=== PATIENT | female | born 1960 | race Caucasian/White ===

== ENCOUNTER 2017-05-23 12:43 | Emergency (ER) | payer OTHER ==
[~2017-05-23] VITALS: Ht 165.1 cm; Wt 59.0 kg
[~2017-05-23 12:43] MED LIST: ASPIR 8181 MG PO; COLESTID1 G PO; FLECAINIDE ACET50 MG PO; LYRICA75 MG PO; TEGRETOL200 MG PO; TOPROL XL25 MG PO; TYLENOL WITH C1 EACH PO
[2017-05-23] MEDS ORDERED: SODIUM CHLORIDE 0.9% 1000ML 1,000 ML IV ONE (14:45)
[2017-05-23 19:57] VITALS: BP 98/52
== END 2017-05-23 16:50 | disposition home or self-care (01) ==
LOC: FSED 12:43
DX: B34.9 Viral infection, unspecified (principal); R51 Headache; I48.91 Unspecified atrial fibrillation; H26.9 Unspecified cataract; Z86.73 Personal history of transient ischemic attack (TIA), and cerebral infarction without residual deficits; Z79.82 Long term (current) use of aspirin; Z88.2 Allergy status to sulfonamides; Z88.8 Allergy status to other drugs, medicaments and biological substances
CPT/HCPCS: 70450; 71046; 80053; 82553; 84484; 85025; 87400; 93005; 99284; J7030

== ENCOUNTER 2018-02-08 10:32 | Emergency (ER) | payer OTHER ==
[~2018-02-08] VITALS: Ht 165.1 cm; Wt 59.0 kg
--- OUTSIDE RECORDS SUMMARY | 2018-02-08 10:34 | XMS REPORT | Clinical Summary ---
Author Author [facility] Address Unknown Phone Unavailable Care Team Providers Care Box Order Person Name Role Phone Andre Cai PCP Unavailable Allergies Comments Active Allergy Reactions Severity Noted Date Sulfa (Sulfonamide Nausea Only High 10/22/2015 Antibiotics) Medications End Date Status Medication Sig Dispensed Refills Start Date Active carBAMazepine (TEGRETOL Take 100 mg 0 XR) 100 MG 12 hr tablet by mouth every 12 (twelve) hours. Active acetaminophen-codeine Take by mouth 0 (TYLENOL #3) 300-30 mg as needed for per tablet Pain (Take 1 to 2 tablets by mouth every 4 to 6 hours as needed.). Active metoprolol (TOPROL-XL) 25 Take by mouth 0 MG 24 hr tablet as directed Take 1 tablet by mouth in the morning. Take 1/2 tablet by mouth at night. Dose and frequency confirmed and verified with the patient. . Active flecainide (TAMBOCOR) 50 Take 50 mg by 0 MG tablet mouth 2 (two) times daily. Active aspirin 81 MG EC tablet Take 81 mg by 0 mouth nightly. Active Problems Not on file Social History Date Tobacco Use Types Packs/Day Years Used Never Assessed Sex Assigned at Date Recorded Not on file Industry Job Start Date Occupation Not on file Not on file Not on file Travel End Travel History Travel Start No recent travel history available. Last Filed Vital Signs Not on file Plan of Treatment Care Team Description Date Type Specialty [facility] [address] [place] [address] 03/14/2018 Hospital Encounter Basil Merchant MD 1976 [facility] 2[address] Fl [place] [address] [address] [place] [address] IMPLANT EXCHANGE,IOL 03/14/2018 Surgery Results Not on fileafter 02/07/2017 Insurance Payer Benefit Subscriber ID Type Phone Address Plan / Group [employer] - [place]GD UNITED PPO xxxxxxxxxxxx PPO CARE OPTIONS [employer] - [place] CARE [employer]ET[employer] OPEN xxxxxxxxxx HMO/POS ACCESS HMO NAP
--- OUTSIDE RECORDS SUMMARY | 2018-02-08 10:34 | XMS REPORT | Summary of Care ---
Author Author MERLYN Shaw, SARAH Recinos Unknown Address [facility] Phone Unavailable Care Team Providers Care Director Of Culture Name Role Phone MERLYN Shaw, SARAH Mcgovern Unavailable BLAS NAQVI M.D. Unavailable Unavailable MERLYN CRUM NMSARAH Unavailable Unavailable CASA CHNEEY NM, APRIL Mcgovern Unavailable Unavailable Unavailable Functional Status Name Dates Details Functional status health issues are not documented Status: Name Dates Details Cognitive status health issues are not documented Status: Problems Name Dates Details Headache (784.0, R51) Status: Active Decreased libido (799.81, R68.82) Status: Active Influenza (487.1, J11.1) Status: Active Influenza vaccine needed (V04.81, Z23) Status: Active Encounter for routine gynecological examination with Papanicolaou smear of cervix (V72.31, Z01.419) Status: Active Myalgia and myositis (729.1) Status: Active Fatigue (780.79, R53.83) Status: Active Mitral valve prolapse syndrome (424.0, I34.1) Status: Active Need for influenza vaccination (V04.81, Z23) Status: Active Intermittent cerebral ischemia (435.9, G45.9) Status: Active Osteoarthritis of knee (715.36, M17.10) Status: Active Need for DTP vaccine (V06.1, Z23) Status: Active 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, 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: Active 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, 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) Status: Active Inflamed seborrheic keratosis (702.11, L82.0) Status: Active Meralgia paresthetica (355.1, G57.10) Status: Active Urticaria, acute (708.8, L50.8) Status: Active Malaise (780.79, R53.81) Status: Active Ear pain, left (388.70, H92.02) Status: Active Cough (786.2, R05) Status: Active Orthostatic hypotension (458.0, I95.1) Status: Active Iatrogenic hypotension (458.29, I95.89) Status: Active Hypotension (458.9, I95.9) Status: Active Dysfunction of both Eustachian tubes (381.81, H69.83) Status: Active Diarrhea (787.91, R19.7) Status: Active Drug-induced diarrhea (787.91, K52.1) Status: Active Acute back pain less than 4 weeks duration (724.5, M54.9) Status: Active Muscle strain (848.9, T14.8XXA) Status: Active Coracoid impingement of right shoulder (726.2, M75.41) Status: Active Postmenopausal (V49.81, Z78.0) Status: Active Encounter for screening for osteoporosis (V82.81, Z13.820) Status: Active Jaw pain (784.92, R68.84) Status: Active Dermatitis (692.9, L30.9) Status: Active Nausea and vomiting (787.01, R11.2) Status: Active Laryngitis (464.00, J04.0) Status: Active Leg pain, anterior, left (729.5, M79.605) Status: Active Allergic rhinitis, seasonal (477.9, J30.2) Status: Active Urine frequency (788.41, R35.0) Status: Active Lupus (695.4, L93.0) Status: Active Muscle weakness (728.87, M62.81) Status: Active Anemia (285.9, D64.9) Status: Active Other fatigue (780.79, R53.83) Status: Active ADONAY positive (795.79, R76.8) Status: Active Iritis (364.3, H20.9) Status: Active Polyarthralgia (719.49, M25.50) Status: Active Keratoderma (757.39, Q82.8) Status: Active Foot pain (729.5, M79.673) Status: Active Limb pain (729.5, M79.609) Status: Active Osteoarthritis (715.90, M19.90) Status: Active Nausea (787.02, R11.0) Status: Active Visit for screening mammogram (V76.12, Z12.31) Status: Active Postmenopausal atrophic vaginitis (627.3, N95.2) Status: Active Acute bronchitis (466.0, J20.9) Status: Active Trigeminal neuralgia (350.1, G50.0) Status: Active Vaginal dryness (625.8, N89.8) Status: Active Inflammation Status: Active Acute vulvitis (616.10, N76.2) Status: Active Urinary symptom or sign (788.99, R39.9) Status: Active Cervical inflammation (616.0, N72) Status: Active Acute vaginitis (616.10, N76.0) Status: Active Laryngopharyngeal reflux (478.79, K21.9) Status: Active Acute pharyngitis due to other specified organisms (462, J02.8) Status: Active Allergic rhinitis (477.9, J30.9) Status: Active Medications Name Dates Details Toprol XL 25 MG Oral Tablet Extended Release 24 Hour take 1 AM, 1/2 PM * Start : 08-Aug-2007 Active Colestipol HCl - 1 GM Oral Tablet TAKE 1 TABLET DAILY. * Quantity: 30 Refills: 0 SARAH ZULETA M.D. Active Aspirin 81 MG TABS TAKE 1 TABLET DAILY. * Refills: 0 Active Ambien 5 MG Oral Tablet TAKE 1 TABLET AT BEDTIME NEEDED. * Refills: 0 Active Ondansetron 4 MG Oral Tablet Disintegrating 1 po tid prn * Quantity: 10 Refills: 0 BLAS NAQVI M.D. * Start : 28-Dec-2015 Active Flecainide Acetate 50 MG Oral Tablet TAKE 1 TABLET TWICE DAILY. * Refills: 0 Active Nitrofurantoin Macrocrystal 100 MG Oral Capsule TAKE ONE (1) CAPSULE(S) BY MOUTH DAILY NEEDED FOR UTI PROPHYLAXIS. * Quantity: 30 Refills: 0 SARAH ZULETA M.D. * Start : 21-Sep-2016 Active Pantoprazole Sodium 40 MG Oral Tablet Delayed Release 1 po q day * Quantity: 30 Refills: 2 SARAH ZULETA M.D. * Start : 16-Apr-2017 Active Allergies and Adverse Reactions Name Dates Details Sudafed TABS (Allergy) Status: Active Sulfa Drugs (Allergy) Status: Active Past Medical History Name Dates Details Influenza vaccine needed (V04.81, Z23) Status: Active History of Acute upper respiratory infection (465.9, J06.9) Status: Resolved History of Atrial fibrillation (427.31, I48.91) Status: Resolved History of Migraine without status migrainosus, not intractable (346.90, G43.909) Status: Resolved History of screening mammography (V15.89, Z92.89) Status: Resolved Procedures Procedure Dates Details History of Cholecystotomy Completed History of Tonsillectomy Completed Immunization Name Dates Details Influenza on: 18-Jan-2012 Fluzone INJ Lot #: [id number] on: 23-Mar-2013 Fluzone INJ Lot #: [id number] on: 31-Jan-2014 DTaP Lot #: [id number] on: 16-Feb-2014 Fluzone Preservative Free 0.5 ML AMY Lot #: [id number] on: 27-Dec-2015 Family History Name Dates Details Family history of Arthritis (V17.7) Status: Active Family history of Reported Family History Of Kidney Disease Status: Active Name Dates Details Family history of Reported Family History Of Heart Disease Status: Active Social History Name Dates Details - Status: Name Dates Details Never smoker Vital Signs Date Test Result Details [id number] BP Systolic 90 mm[Hg] Status: Comments: Location: LUE; Position: Sitting BP Diastolic 58 mm[Hg] Status: Comments: Location: LUE; Position: Sitting Height 65 in Status: Weight 130.25 lb Status: Body Mass Index Calculated 21.67 kg/m2 Status: Body Surface Area Calculated 1.65 m2 Status: Temperature 97.4 f Status: Comments: Method: Temporal Heart Rate 56 /min Status: Comments: Location: R Radial; Quality: Normal Respiration Rate 18 /min Status: Comments: Quality: Normal :44 BP Systolic 92 mm[Hg] Status: Comments: Location: LUE; Position: Sitting BP Diastolic 59 mm[Hg] Status: Comments: Location: LUE; Position: Sitting Height 65 in Status: Weight 128.1875 lb Status: Body Mass Index Calculated 21.33 kg/m2 Status: Body Surface Area Calculated 1.64 m2 Status: Temperature 97.1 f Status: Comments: Method: Temporal Heart Rate 61 /min Status: Respiration Rate 16 /min Status: Results Date Description Value Details [id number] [O] Streptococcus Test Rapid (In Office) Group A Strep Screen Negative (Normal) Plan of Care Name Dates Details Planned Observations Planned Goals not documented Interventions Provided Plan* Plan today symptomatic therapy for an allergic rhinitis. All questions were answered she will be seen as needed. Instructions Name Dates Details Instructions not documented Encounters Appointment; BLAS NAQVI M.D. Encounter Diagnosis: Problem not documented On: 19-Jun-2015 16:00 Appointment; DALTON CORONA NP Encounter Diagnosis: Problem not documented On: 24-Jul-2015 15:00 Appointment; MARCELA HICKS M.D. Encounter Diagnosis: Problem not documented On: 27-Sep-2015 10:30 Appointment; PORTER BRADSHAW M.D. Encounter Diagnosis: Problem not documented On: 15-Oct-2015 14:30 Appointment; MARSHALL CHIANG D.O. Encounter Diagnosis: Problem not documented On: 18-Oct-2015 13:45 Appointment; SARAH ZULETA M.D. Encounter Diagnosis: Problem not documented On: 27-Dec-2015 15:45 Appointment; SARAH ZULETA M.D. Encounter Diagnosis: Problem not documented On: 27-Dec-2015 16:00 Appointment; BLAS NAQVI M.D. Encounter Diagnosis: Problem not documented On: 28-Dec-2015 9:00 Appointment; SRIRAM RODRIGUEZ NP Encounter Diagnosis: Problem not documented On: 30-Jan-2016 18:30 Appointment; WILFRIDO SÁNCHEZ P.A. Encounter Diagnosis: Problem not documented On: 23-Mar-2016 10:30 Appointment; SARAH ZULETA M.D. Encounter Diagnosis: Problem not documented On: 20-Apr-2016 11:15 Appointment; APRIL CORMIER, PEly Encounter Diagnosis: Problem not documented On: 20-Jul-2016 12:30 Appointment; MARSHALL CHIANG D.O. Encounter Diagnosis: Problem not documented On: 21-Jul-2016 15:30 Appointment; ERROL CODY M.D. Encounter Diagnosis: Problem not documented On: 27-Jul-2016 14:00 Appointment; SARAH ZULETA M.D. Encounter Diagnosis: Problem not documented On: 11-Sep-2016 12:00 Appointment; JIGAR MURRIETA NP Encounter Diagnosis: Problem not documented On: 23-Sep-2016 13:00 Appointment; SARAH ZULETA M.D. Encounter Diagnosis: Problem not documented On: 02-Oct-2016 11:45 Appointment; PORTER BRADSHAW M.D. Encounter Diagnosis: Problem not documented On: 21-Oct-2016 11:20 Appointment; JIGAR MURRIETA NP Encounter Diagnosis: Problem not documented On: 09-Dec-2016 13:30 Appointment; MARCELA HICKS M.D. Encounter Diagnosis: Problem not documented On: 10-Feb-2017 15:30 Appointment; SARAH ZULETA M.D. Encounter Diagnosis: Problem not documented On: 16-Apr-2017 10:15 Appointment; SARAH ZULETA M.D. Encounter Diagnosis: Problem not documented On: 24-Apr-2017 9:00 Appointment; SARAH ZULETA M.D. Encounter Diagnosis: Problem not documented On: 21-May-2017 11:15
[2018-02-08] MEDS ORDERED: KETOROLAC TROMETHAMINE 60 MG/2 ML VIAL IM STA (11:03)
[2018-02-08] MEDS ORDERED: HYDROCODONE/APAP 7.5MG-325MG 1 EA TAB PO STA (11:45)
--- NOTE | 2018-02-08 11:57 | Diagnostic Imaging Report ---
Radiographs of the lumbar spine 3 views - HISTORY: Pain COMPARISON: None available. FINDINGS: Bones: No acute displaced fracture. Osseous alignment is within normal limits. Joints: Mild scattered degenerative change. No osseous erosion. Soft tissues: The soft tissues appear unremarkable. IMPRESSION: Mild scattered degenerative change. No osseous erosion. Signed by: Dr. Chandler Whipple M.D. on 02/08/2018 11:54 AM
[2018-02-08 12:16] VITALS: BP 101/57
== END 2018-02-08 12:31 | disposition home or self-care (01) ==
LOC: FSED 10:32
DX: M54.5 Low back pain (principal); M54.16 Radiculopathy, lumbar region
CPT/HCPCS: 72100; 99283; J1885

== ENCOUNTER 2023-01-15 09:12 | Inpatient (IN) | payer BC, OTHER ==
[~2023-01-15] VITALS: Ht 165.1 cm; Wt 59.0 kg
[2023-01-15] MEDS ORDERED: LACTATED RINGER'S 1,000 ML IV ONE ×2 (09:45→12:15)
[2023-01-15 10:13] LABS: BASOPHILS % 0.4 % (0.0-1.0); EOSINOPHILS % 0.4 % (0.0-6.0); HEMATOCRIT 37.7 % (34.2-44.1); HEMOGLOBIN 12.9 g/dL (12.0-16.0); LYMPHOCYTES # (AUTO) 0.5 (1.0-3.2); LYMPHOCYTES % 7.2 % (18.0-39.1); MEAN CORPUSCULAR HEMOGLOBIN 30.2 pg (28-32); MEAN CORPUSCULAR HGB CONC 34.2 g/dL (31-35); MEAN CORPUSCULAR VOLUME 88.3 fL (81-99); MONOCYTES % 0.3 % (4.4-11.3); NEUTROPHILS # (AUTO) 6.4 (2.1-6.9); NEUTROPHILS % 91.3 % (38.7-80.0); PLATELET COUNT 177 x10e3/uL (140-360); RED BLOOD COUNT 4.27 x10e6/uL (3.6-5.1); RED CELL DISTRIBUTION WIDTH 14.5 % (11.7-14.4); WHITE BLOOD COUNT 6.99 x10e3/uL (4.8-10.8)
[2023-01-15] MEDS ORDERED: ACETAMINOPHEN 1000 MG/100 ML IV STA (10:24)
[2023-01-15] MEDS ORDERED: ONDANSETRON HCL INJ 2MG/ML 2ML 2 MG/ML VIAL IV STA (10:24)
[2023-01-15 10:37] LABS: ALANINE AMINOTRANSFERASE 228 IU/L (0-55); ALBUMIN 3.1 g/dL (3.5-5.0); ALBUMIN/GLOBULIN RATIO 0.8 (0.8-2.0); ALKALINE PHOSPHATASE 167 IU/L (40-150); ANION GAP 14.4 mmol/L (8-16); BLOOD UREA NITROGEN 12 mg/dL (7-26); BUN/CREATININE RATIO 14 (6-25); CALCIUM 9.6 mg/dL (8.4-10.2); CARBON DIOXIDE 22 mmol/L (22-29); CHLORIDE 105 mmol/L (98-107); CREATINE KINASE 15 IU/L (29-168); CREATININE, SERUM 0.85 mg/dL (0.57-1.11); GLUCOSE 105 mg/dL (74-118); POTASSIUM 4.4 mmol/L (3.5-5.1); SODIUM 137 mmol/L (136-145)
[2023-01-15] MEDS ORDERED: IBUPROFEN 600 MG TAB PO STA (12:10)
[2023-01-15 15:06] LABS: CLARITY,URINE CLEAR (CLEAR); COLOR,URINE YELLOW (YELLOW)
[2023-01-15 15:07] LABS: KETONES,URINE NEGATIVE (NEGATIVE); LEUKOCYTE ESTERASE ,URINE SMALL (NEGATIVE); NITRITE,URINE NEGATIVE (NEGATIVE); PROTEIN,URINE DIPSTICK TRACE (NEGATIVE); URINE UROBILINOGEN 0.2 mg/dL (0.2 - 1)
[2023-01-15 15:17] LABS: BACTERIA,URINE RARE /HPF; EPITHELIAL CELLS,URINE FEW /LPF; RENAL EPITHELIAL CELLS,URINE FEW; WBC,URINE (MAN) 0-5 /HPF (0-5)
[2023-01-15] MEDS: LACTATED RINGER'S 1,000 ML INJ SCH ×2 (15:36→18:34)
[2023-01-15] MEDS ORDERED: ONDANSETRON HCL 4 MG ORAL DISINTEGRATING TAB PO PRN (16:30)
[2023-01-15] MEDS ORDERED: ONDANSETRON HCL INJ 2MG/ML 2ML 2 MG/ML VIAL IV PRN (16:30)
[2023-01-15 17:00] VITALS: BP 88/55; PULSE 86; RESP 20; TEMP 99.1; O2SAT 96
[2023-01-15] MEDS ORDERED: IOPAMIDOL 370 MG/ML 100 ML INFUS..BTL INJ ONE (17:19)
[2023-01-15 20:00] VITALS: BP 89/58; PULSE 91; RESP 17; TEMP 99.2; O2SAT 99
[2023-01-16] VITALS (12 sets, daily range): BP systolic 93–110; BP diastolic 55–65; PULSE 88–108; RESP 16–20; TEMP 99–102.6; O2SAT 94–100
[2023-01-16] MEDS: LACTATED RINGER'S 1,000 ML INJ SCH ×3 (03:34→15:00)
[2023-01-16 08:45] LABS: BASOPHILS % 0.5 % (0.0-1.0); EOSINOPHILS % 0.2 % (0.0-6.0); HEMATOCRIT 31.6 % (34.2-44.1); HEMOGLOBIN 10.7 g/dL (12.0-16.0); LYMPHOCYTES # (AUTO) 0.5 (1.0-3.2); LYMPHOCYTES % 11.4 % (18.0-39.1); MEAN CORPUSCULAR HEMOGLOBIN 30.2 pg (28-32); MEAN CORPUSCULAR HGB CONC 33.9 g/dL (31-35); MEAN CORPUSCULAR VOLUME 89.3 fL (81-99); MONOCYTES # (AUTO) 0.1 (0.2-0.8); MONOCYTES % 3.1 % (4.4-11.3); NEUTROPHILS # (AUTO) 3.5 (2.1-6.9); NEUTROPHILS % 83.9 % (38.7-80.0); PLATELET COUNT 147 x10e3/uL (140-360); RED BLOOD COUNT 3.54 x10e6/uL (3.6-5.1); RED CELL DISTRIBUTION WIDTH 14.5 % (11.7-14.4); WHITE BLOOD COUNT 4.22 x10e3/uL (4.8-10.8)
[2023-01-16 09:10] LABS: ANION GAP 14.3 mmol/L (8-16); CALCIUM 8.8 mg/dL (8.4-10.2); CREATININE, SERUM 0.82 mg/dL (0.57-1.11); POTASSIUM 4.3 mmol/L (3.5-5.1)
[2023-01-16] MEDS ORDERED: ACETAMINOPHEN 1000 MG/100 ML IV ONE (10:00)
[2023-01-16] MEDS ORDERED: ACETAMINOPHEN 325 MG TAB PO ONE (10:15)
[2023-01-16] MEDS ORDERED: BENZONATATE 100 MG CAP PO PRN (10:30)
[2023-01-16 11:19] LABS: PLATELET ESTIMATE ADEQUATE; PLATELET MORPHOLOGY COMMENT NORMAL
[2023-01-16] MEDS: GUAIFENESIN/CODEINE 5 ML LIQD PO PRN ×2 (12:48→16:49)
[2023-01-16] MEDS: ACETAMINOPHEN 325 MG TAB PO PRN ×2 (15:01→20:56)
[2023-01-16] MEDS: ALBUTEROL SULF 0.083% NEB SOLN 3 ML NEB NEB PRN (19:42)
[2023-01-16] MEDS: ZOLPIDEM TARTRATE 5 MG TAB PO PRN (20:56)
[2023-01-17] VITALS (8 sets, daily range): BP systolic 91–101; BP diastolic 54–82; PULSE 67–104; RESP 16–18; TEMP 98.3–102.4; O2SAT 94–98
[2023-01-17] MEDS: LACTATED RINGER'S 1,000 ML INJ SCH ×2 (00:03→08:25)
[2023-01-17] MEDS: IBUPROFEN 400 MG TAB PO PRN ×3 (00:04→20:26)
[2023-01-17 06:36] LABS: BASOPHILS % 0.3 % (0.0-1.0); EOSINOPHILS % 0.8 % (0.0-6.0); HEMATOCRIT 29.4 % (34.2-44.1); HEMOGLOBIN 9.9 g/dL (12.0-16.0); LYMPHOCYTES # (AUTO) 0.5 (1.0-3.2); LYMPHOCYTES % 12.5 % (18.0-39.1); MEAN CORPUSCULAR HEMOGLOBIN 29.7 pg (28-32); MEAN CORPUSCULAR HGB CONC 33.7 g/dL (31-35); MEAN CORPUSCULAR VOLUME 88.3 fL (81-99); MONOCYTES # (AUTO) 0.2 (0.2-0.8); MONOCYTES % 4.1 % (4.4-11.3); NEUTROPHILS # (AUTO) 3.2 (2.1-6.9); PLATELET COUNT 152 x10e3/uL (140-360); RED BLOOD COUNT 3.33 x10e6/uL (3.6-5.1); RED CELL DISTRIBUTION WIDTH 14.7 % (11.7-14.4); WHITE BLOOD COUNT 3.92 x10e3/uL (4.8-10.8)
[2023-01-17 06:54] LABS: ALBUMIN 1.9 g/dL (3.5-5.0); ALBUMIN/GLOBULIN RATIO 0.5 (0.8-2.0); ANION GAP 12.1 mmol/L (8-16); CALCIUM 8.4 mg/dL (8.4-10.2); CREATININE, SERUM 0.79 mg/dL (0.57-1.11); POTASSIUM 4.1 mmol/L (3.5-5.1)
[2023-01-17] MEDS: ALBUTEROL SULF 0.083% NEB SOLN 3 ML NEB NEB PRN (08:12)
[2023-01-17 11:16] LABS: PLATELET ESTIMATE ADEQUATE; PLATELET MORPHOLOGY COMMENT NORMAL
[2023-01-17] MEDS: GUAIFENESIN/CODEINE 5 ML LIQD PO PRN ×2 (16:32→20:43)
[2023-01-17] MEDS: ZOLPIDEM TARTRATE 5 MG TAB PO PRN (22:05)
[2023-01-17] MEDS: ACETAMINOPHEN 325 MG TAB PO PRN (22:07)
[2023-01-18] VITALS (10 sets, daily range): BP systolic 99–115; BP diastolic 61–71; PULSE 78–103; RESP 16–20; TEMP 98.4–102.9; O2SAT 95–100
[2023-01-18] MEDS: IBUPROFEN 400 MG TAB PO PRN (11:00)
[2023-01-18] MEDS ORDERED: ACETAMIN/BUTALBITAL/CAFFEINE TAB PO PRN (14:45)
[2023-01-18 15:50] LABS: HIV 1&2 AB SCREEN NON-REACTIVE (NONREACTIVE)
[2023-01-18] MEDS: GUAIFENESIN/CODEINE 5 ML LIQD PO PRN (16:31)
[2023-01-19 00:39] VITALS: BP 108/60; PULSE 81; RESP 19; TEMP 98.4; O2SAT 97
[2023-01-19 05:35] LABS: BASOPHILS % 0.5 % (0.0-1.0); EOSINOPHILS # (AUTO) 0.1 (0.0-0.4); EOSINOPHILS % 3.3 % (0.0-6.0); HEMATOCRIT 30.2 % (34.2-44.1); HEMOGLOBIN 10.3 g/dL (12.0-16.0); LYMPHOCYTES # (AUTO) 1.1 (1.0-3.2); LYMPHOCYTES % 26.5 % (18.0-39.1); MEAN CORPUSCULAR HEMOGLOBIN 29.9 pg (28-32); MEAN CORPUSCULAR HGB CONC 34.1 g/dL (31-35); MEAN CORPUSCULAR VOLUME 87.8 fL (81-99); MONOCYTES # (AUTO) 0.3 (0.2-0.8); MONOCYTES % 6.6 % (4.4-11.3); NEUTROPHILS # (AUTO) 2.2 (2.1-6.9); NEUTROPHILS % 55.5 % (38.7-80.0); PLATELET COUNT 189 x10e3/uL (140-360); RED BLOOD COUNT 3.44 x10e6/uL (3.6-5.1); RED CELL DISTRIBUTION WIDTH 14.6 % (11.7-14.4); RETICULOCYTE % 0.3 % (0.8-2.2); WHITE BLOOD COUNT 3.96 x10e3/uL (4.8-10.8)
[2023-01-19 05:58] VITALS: BP 102/66; PULSE 68; RESP 18; TEMP 99.1; O2SAT 96
[2023-01-19 06:24] LABS: ALBUMIN 2.1 g/dL (3.5-5.0); ALBUMIN/GLOBULIN RATIO 0.6 (0.8-2.0); ANION GAP 12.1 mmol/L (8-16); CALCIUM 8.4 mg/dL (8.4-10.2); CREATININE, SERUM 0.7 mg/dL (0.57-1.11); MAGNESIUM 2.2 MG/DL (1.3-2.1); PHOSPHORUS 2.5 MG/DL (2.3-4.7); POTASSIUM 4.1 mmol/L (3.5-5.1)
[2023-01-19 06:27] LABS: FERRITIN 846.02 ng/mL (4.63-204.00)
[2023-01-19 07:06] VITALS: PULSE 84; RESP 18; O2SAT 96
[2023-01-19 08:00] VITALS: BP_SYST 102; BP_DIAS 60; BP_DIAS 66; PULSE 84; PULSE 85; RESP 16; RESP 18; TEMP 99.1; TEMP 99.6; O2SAT 96; O2SAT 97
[2023-01-19 08:59] LABS: BAND NEUTROPHILS % (MANUAL) 1 %; EOSINOPHILS % (MANUAL) 7 % (0-7); LYMPHOCYTES % (MANUAL) 19 % (19-48); METAMYELOCYTES % (MANUAL) 2 % (0-0); MONOCYTES % (MANUAL) 2 % (3.4-9.0); MYELOCYTES % (MANUAL) 5 % (0-0); NEUTROPHILS % (MANUAL) 63 % (40-74); PLATELET ESTIMATE ADEQUATE; PLATELET MORPHOLOGY COMMENT NORMAL; RBC MORPHOLOGY COMMENT NORMAL
[2023-01-19 11:40] VITALS: BP 100/62; PULSE 85; RESP 20; TEMP 98.9; O2SAT 98
[2023-01-19 15:52] VITALS: BP 112/70; PULSE 88; RESP 19; TEMP 98.6; O2SAT 97
[2023-01-19] MEDS ORDERED: ACETAMINOPHEN325 M1 PO (16:20)
[2023-01-19] MEDS ORDERED: GUAIFEN-CODEINE5 ML PO (16:20)
[2023-01-19] MEDS ORDERED: DOXYCYCLINE HY100 MG PO (16:20)
[2023-01-19] MEDS ORDERED: IBUPROFEN200 MG PO (16:20)
[2023-01-19] MEDS ORDERED: ONDANSETRON ODT4 MG PO (16:20)
[2023-01-19] MEDS ORDERED: AUGMENTIN600 MG/5 M PO (16:20)
[2023-01-19] MEDS ORDERED: FIORICET 50-301 EACH PO (16:20)
[2023-01-19] MEDS ORDERED: BENZONATATE200 MG PO (16:20)
== END 2023-01-19 16:49 | disposition home or self-care (01) | DRG 871 ==
LOC: ER 09:22 → ERHOLD 11:19 → MED/SURG3 16:45
PROVIDERS: ADMIT Internal Medicine; ATTEND Internal Medicine
DX: A41.9 Sepsis, unspecified organism (principal); J18.9 Pneumonia, unspecified organism; D80.1 Nonfamilial hypogammaglobulinemia; I48.91 Unspecified atrial fibrillation; E86.0 Dehydration; R74.01 Elevation of levels of liver transaminase levels; R11.2 Nausea with vomiting, unspecified; K59.00 Constipation, unspecified; R05.1 Acute cough; Z79.82 Long term (current) use of aspirin; Z79.899 Other long term (current) drug therapy; Z20.822 Contact with and (suspected) exposure to COVID-19
CPT/HCPCS: 0223U; 36415; 71045; 71046; 71260; 74177; 74230; 80048; 80053; 81001; 82550; 82607; 82728; 82746; 83540; 83605; 83735; 84100; 84466; 84484; 85025; 85045; 86631; 86738; 86757; 87040; 87086; 87390; 87400; 87449; 87536; 94799; 99284; G0433; G0435; J2405; J2543; J7050; Q0162; Q9967

== ENCOUNTER → 2023-03-08 | Outpatient (REF) | payer BC ==
[~2023-03-08] MED LIST changes: +ACETAMINOPHEN325 M1 PO; +AUGMENTIN600 MG/5 M PO; +BENZONATATE200 MG PO; +DOXYCYCLINE HY100 MG PO; +FIORICET 50-301 EACH PO; +GUAIFEN-CODEINE5 ML PO; +IBUPROFEN200 MG PO; +IOPAMIDOL 370 MG/ML 100 ML INFUS..BTL INJ ONE; +ONDANSETRON ODT4 MG PO
[2023-03-08 16:26] LABS: CREATININE, SERUM 0.79 mg/dL (0.57-1.11)
== END ==
LOC: CT 15:34
PROVIDERS: ATTEND Internal Medicine Critical Care Medicine
DX: Z09 Encounter for follow-up examination after completed treatment for conditions other than malignant neoplasm (principal); J18.9 Pneumonia, unspecified organism
CPT/HCPCS: 36415; 71260; 82565; 84520; Q9967